=== PATIENT | female | born 1970 | race Caucasian/White ===

== ENCOUNTER 2019-08-30 14:13 | Outpatient (CLI) | payer OTHER, SELFPAY ==
--- NOTE | ~2019-08-30 | XR_ITS ---
EXAMINATION: XR chest 2V EXAM DATE: 08/30/2019 14:34 INDICATION: Cough. TECHNIQUE: Frontal and lateral projections of the chest obtained and reviewed. There is no prior rosaline dy for comparison. FINDINGS: The lungs are clear. There are no pleural effusions. The cardiomediastinal silhouette is within normal limits. There is no pneumothorax suspected. The bones and soft tissues are unremarkab le. IMPRESSION: Normal chest x-ray exam. Reviewed, dictated and finalized at location B. IMPRESSION: Normal chest x-ray exam.
== END 2019-08-30 14:14 | disposition home or self-care (01) ==
LOC: ANHIMG 14:18
PROVIDERS: PCP Internal Medicine; Visit Provider Clinical Nurse Specialist
DX: R05 Cough (principal)
CPT/HCPCS: 71046

== ENCOUNTER 2019-09-09 10:01 | Outpatient (CLI) | payer OTHER, SELFPAY ==
--- NOTE | ~2019-09-09 | CT_ITS ---
EXAMINATION:CT chest w con DATE: 09/09/2019 10:37 INDICATION: Cough. TECHNIQUE: Computed tomography (CT) of the chest was performed with 75 mL Omnipaque 350 intravenous c ontrast. Automated exposure control and iterative reconstruction technique were employed. The dose-le ngth product (DLP) was 132.31 mGy-cm. COMPARISON: CT abdomen and pelvis 12/15/2015 FINDINGS: There is mild atelectasis bilaterally. Calcified right lung nodules and calcified right hil ar lymph nodes are consistent with old granulomatous disease. No pleural effusion. The heart size is normal. No pericardial effusion. Calcifications in the spleen are consistent with old granulomatous d isease. There are bilateral breast implants. There is mild thoracic spondylosis. IMPRESSION: 1. No etiology for the patient's symptoms. Reviewed, dictated and finalized at location A.
== END 2019-09-09 10:02 | disposition home or self-care (01) ==
PROVIDERS: PCP Internal Medicine; Visit Provider Clinical Nurse Specialist
DX: R05 Cough (principal)
CPT/HCPCS: 71260; Q9967

== ENCOUNTER 2022-06-13 06:53 | Day surgery (SDC) | payer OTHER, SELFPAY ==
[2022-06-02 13:25] VITALS: BMI 24.6
[2022-06-06 13:20] VITALS: BMI 24.0
--- NOTE | 2022-06-13 07:21 | WPDANESEPPF ---
Anes - Initial Pre Proc Eval Procedure: Operation Date: 06/13/22 09:00 Proposed Procedures p Screening Colonoscopy - Freddy Morris MD Date/Time: 06/13/22 07:21 Surgeon: Freddy Morris MD Pre Op Diagnosis: Neoplasm Screening Patient Data Age: 52 Gender: F Height: 1.63 m Weight: 63.5 kg Allergies Allergy/AdvReac Type Severity Reaction Status Date / Time blue dye Allergy Intermediate Unknown Verified 06/13/22 07:46 yellow dye Allergy Intermediate Unknown Verified 06/13/22 07:46 aspirin Allergy Unknown Unknown Verified 06/13/22 07:46 cortisone Allergy Unknown Unknown Verified 06/13/22 07:46 adhesive tape Allergy Unknown Verified 06/13/22 07:46 mint Allergy Unknown Verified 06/13/22 07:46 wheat Allergy Unknown Verified 06/13/22 07:46 ANTI INFLAMATORY Allergy Mild Unknown Uncoded 06/13/22 07:46 Home Medications Medication Instructions Recorded Confirmed Type clonazepam 0.5 mg tablet 0.5 mg PO BID 08/29/19 06/13/22 History dextroamphetamine-amphetamine 10 10 mg PO DAILY 08/29/19 06/13/22 History mg tablet (Adderall) dextroamphetamine-amphetamine ER 30 mg PO DAILY 08/29/19 06/13/22 History 30 mg 24hr capsule,extend release (Adderall XR) fexofenadine 180 mg tablet 180 mg PO DAILY 08/29/19 06/13/22 History (Katie Allergy) fluoxetine 40 mg capsule (Prozac) 80 mg PO DAILY 08/29/19 06/13/22 History multivitamin 1 tablet PO DAILY 08/29/19 06/13/22 History vitamin E (dl, acetate) 180 mg 800 unit PO DAILY 08/30/19 06/13/22 History (400 unit) capsule famotidine 20 mg tablet (Pepcid) 20 mg PO DAILY 10/07/19 06/13/22 History aripiprazole 10 mg tablet (Abilify) 12 mg PO DAILY 11/25/21 06/13/22 History biotin 1,000 mcg chewable tablet 10,000 mcg PO DAILY 11/25/21 06/06/22 History estradiol 0.05 mg/24 hr semiweekly 1 patch transdermal WEEKLY 06/02/22 06/13/22 History transdermal patch ipratropium bromide 21 mcg (0.03 ml intranasal 06/02/22 06/02/22 History %) nasal spray Patient hx anesthesia problems: none Family hx anesthesia problems: none Results Review: All pre-operative results and documents have been reviewed as part of the pre-operative evaluation. [facility] Past Medical History Medical History Anxiety Chronic pain Chronic post-traumatic stress disorder (PTSD) Migraine headache Night sweats Tremor of both hands Urinary incontinence Surgical History Surgical History H/O shoulder surgery H/O sinus surgery History of elbow surgery right History of foot surgery History of hysterectomy History of oophorectomy Family History Family History Sibling Hypertension Grandparent Heart disease Diabetes mellitus Social History Social History Smoking status: Former smoker Tobacco type: e-cigarettes/vaping Alcohol intake: current Substance use: current Substance use type: marijuana Lack of Transportation: No Lack of Food: Never True Current Housing: I Have Housing Concerned About Future Housing: No Difficulty Paying Gas/Electric Bills: No Difficulty Paying for Meds: No Currently Unemployed: No Education: Master's Degree or Higher Difficulty w/ Childcare or Family Care: No Living arrangements: with family Spiritual care concerns: No Anes - Eval Final PreProcedure Day of Procedure 06/13/22 07:21 Patient weight: normal Heart: regular rate and rhythm Lungs: clear to auscultation and normal air movement Airway: Mallampati scale class II Neurological: alert and oriented Last oral intake: >/= 8 hours ASA classification: II Emergent: no Anesthetic plan: proceed Anesthesia type and monitoring: general GIVS Results Review: All pre-operative results and documents have been reviewed as part of the pre-operative evaluation. In
[2022-06-13 07:50] VITALS: BP 112/67; PULSE 59; RESP 14; TEMP 37.1; O2SAT 100
[2022-06-13 07:51] VITALS: BMI 24.6
[2022-06-13] MEDS: LACTATED RINGERS 1,000 ML 150 ML IV CONT (08:01)
--- NOTE | 2022-06-13 08:19 | PM.HPGS ---
History of Present Illness History of Present Illness Consent: Risks, benefits, and alternatives have been discussed and questions answered. Patient agrees to proceed with procedure. Chief complaint: Neoplasm Screening Narrative: Roxann Manzanares is a 52 year old female referred for colon cancer screening. Review of Systems Review of Systems: All systems reviewed & are unremarkable except as noted in HPI and below PMFSH Past Medical History Medical History Anxiety Chronic pain Chronic post-traumatic stress disorder (PTSD) Migraine headache Night sweats Tremor of both hands Urinary incontinence Surgical History Surgical History H/O shoulder surgery H/O sinus surgery History of elbow surgery right History of foot surgery History of hysterectomy History of oophorectomy Family History Family History Sibling Hypertension Grandparent Heart disease Diabetes mellitus Social History Social History Smoking status: Former smoker Tobacco type: e-cigarettes/vaping Alcohol intake: current Substance use: current Substance use type: marijuana Lack of Transportation: No Lack of Food: Never True Current Housing: I Have Housing Concerned About Future Housing: No Difficulty Paying Gas/Electric Bills: No Difficulty Paying for Meds: No Currently Unemployed: No Education: Master's Degree or Higher Difficulty w/ Childcare or Family Care: No Living arrangements: with family Spiritual care concerns: No Meds Home Medications and Allergies Home Medications Medication Instructions Recorded Confirmed Type clonazepam 0.5 mg tablet 0.5 mg PO BID 08/29/19 06/13/22 History dextroamphetamine-amphetamine 10 10 mg PO DAILY 08/29/19 06/13/22 History mg tablet (Adderall) dextroamphetamine-amphetamine ER 30 mg PO DAILY 08/29/19 06/13/22 History 30 mg 24hr capsule,extend release (Adderall XR) fexofenadine 180 mg tablet 180 mg PO DAILY 08/29/19 06/13/22 History (Katie Allergy) fluoxetine 40 mg capsule (Prozac) 80 mg PO DAILY 08/29/19 06/13/22 History multivitamin 1 tablet PO DAILY 08/29/19 06/13/22 History vitamin E (dl, acetate) 180 mg 800 unit PO DAILY 08/30/19 06/13/22 History (400 unit) capsule famotidine 20 mg tablet (Pepcid) 20 mg PO DAILY 10/07/19 06/13/22 History aripiprazole 10 mg tablet (Abilify) 12 mg PO DAILY 11/25/21 06/13/22 History biotin 1,000 mcg chewable tablet 10,000 mcg PO DAILY 11/25/21 06/06/22 History estradiol 0.05 mg/24 hr semiweekly 1 patch transdermal WEEKLY 06/02/22 06/13/22 History transdermal patch ipratropium bromide 21 mcg (0.03 ml intranasal 06/02/22 06/02/22 History %) nasal spray Allergies Allergy/AdvReac Type Severity Reaction Status Date / Time blue dye Allergy Intermediate Unknown Verified 06/13/22 07:46 yellow dye Allergy Intermediate Unknown Verified 06/13/22 07:46 aspirin Allergy Unknown Unknown Verified 06/13/22 07:46 cortisone Allergy Unknown Unknown Verified 06/13/22 07:46 adhesive tape Allergy Unknown Verified 06/13/22 07:46 mint Allergy Unknown Verified 06/13/22 07:46 wheat Allergy Unknown Verified 06/13/22 07:46 ANTI INFLAMATORY Allergy Mild Unknown Uncoded 06/13/22 07:46 Vital Signs Vital Signs - 24 hr 06/13/22 07:50 Temperature 37.1 C Pulse Rate 59 L Respiratory Rate 14 Blood Pressure 112/67 Pulse Oximetry 100 Oxygen Delivery Room Air Exam Const: General: alert Orientation/consciousness: patient oriented x3 Resp: Auscultation: clear to auscultation bilaterally Cardio: Rhythm: regular rhythm GI: GI Palp: Yes Soft to palpation and No Tenderness to palpation present (GI) Neuro: General: patient oriented x3 Assessment and Plan Assessment and plan (1) Screening for colon can
[2022-06-13 09:21] VITALS: BP 112/65; PULSE 65; RESP 16; O2SAT 100
[2022-06-13 09:31] VITALS: BP 105/67; PULSE 68; RESP 16; O2SAT 100
--- NOTE | 2022-06-13 09:31 | SUR.PHASEII ---
0925; PT AWAKE AND ALERT. DRINKING SODA AND SPEAKING WITH DR VERDE. DENIES PAIN OR NAUSEA.
[2022-06-13 09:41] VITALS: BP 116/66; PULSE 58; RESP 16; O2SAT 100
--- NOTE | 2022-06-13 12:08 | WPDANESPN ---
Anes - Prog Note Post-Op Date/Time: 06/13/22 12:08 Cardiovascular status: normal Respiratory status: normal Airway patency: baseline Mental status: baseline Post-Op hydration status: normal Vital Signs: Last Vital Signs Temp 37.1 C 06/13/22 07:50 Pulse 58 L 06/13/22 09:41 Resp 16 06/13/22 09:41 BP 116/66 06/13/22 09:41 Pulse Ox 100 06/13/22 09:41 O2 Del Method Room Air 06/13/22 09:41 Pain Score (VAS): 0 I/O: Intake & Output 06/12/22 06/13/22 06/13/22 23:59 07:59 15:59 Intake Total 400 Balance 400 Post-procedural complaints: none Patient Feedback: Patient satisfied with anesthetic care.
== END 2022-06-13 09:55 | disposition home or self-care (01) ==
PROVIDERS: PCP Internal Medicine; Visit Provider Internal Medicine Gastroenterology
PROC: 0DJD8ZZ Inspection of Lower Intestinal Tract, Via Natural or Artificial Opening Endoscopic (ICD-10-PCS; CPT 45378; principal; 2022-06-13 09:00)
DX: Z12.11 Encounter for screening for malignant neoplasm of colon (principal)
CPT/HCPCS: 45378

== ENCOUNTER 2022-06-22 12:31 | Outpatient (CLI) | payer OTHER, SELFPAY ==
--- NOTE | ~2022-06-22 | CT_ITS ---
EXAMINATION: CT diagnostic chest wo con DATE: 06/22/2022 13:43 INDICATION: Chronic cough and bronchitis TECHNIQUE: Computed tomography (CT) of the chest was performed without intravenous contrast. The dose -length product was 143.06 mGy-cm. Automated exposure control and iterative reconstruction technique were employed. COMPARISON: CT dated 09/09/2019 FINDINGS: Heart size normal. No thoracic lymphadenopathy. There is evidence for chronic granulomatous disease. There are bilateral breast implants. No significant pleural or pericardial effusion. There are calcified granulomas of the spleen. No endobronchial lesions. There is a fissural nodule on the l eft measuring 3 mm, coronal image 57, likely benign no focal airspace consolidation. No pneumothorax. No acute osseous abnormality.. IMPRESSION: 1. Small 3 mm fissural nodule on the left, likely benign. Consider follow-up low dose CT chest in 12 months. Reviewed, dictated and finalized at location A. IMPRESSION: 1. Small 3 mm fissural nodule on the left, likely benign. Consider follow-up lo w dose CT chest in 12 months.
--- NOTE | 2022-06-24 10:28 | WPDPFTINT ---
PFT Procedure Performed PFT Procedure Performed Spirometry with Pre/Post Bronchodilator Plethysmography (Lung Vol) Diffusing Cap (DLCO) Flow Vol Loop PFT Interpretation Lung volumes were measured with the body plethysmography method. The elevated lung volumes are most likely related to error in height measurement as the lung volume pattern is not consistent with either restrictive or obstructive airway disease. Spirometry also showed elevated expiratory flow rates most likely due to same error in height. The FEV1 to FVC ratio is normal at 76% predicted. Following administration of a bronchodilator there was no significant increase in expiratory flow rates. Lung diffusion capacity is also elevated for the same reason. Overall the flow volume loop is unremarkable. Impression: Probable normal study. Error in height may explain super normal values.
== END 2022-06-22 12:32 | disposition home or self-care (01) ==
PROVIDERS: PCP Internal Medicine; Visit Provider Internal Medicine Pulmonary Disease
DX: R05.3 Chronic cough (principal); R91.1 Solitary pulmonary nodule
CPT/HCPCS: 71250; 94060; 94726; 94729

== ENCOUNTER 2023-02-06 16:02 | Emergency (ER) | payer OTHER, SELFPAY ==
--- NOTE | 2023-02-06 16:06 | ED.URI ---
HPI - URI/Sore Throat General Chief Complaint: Upper Respiratory Infection Stated Complaint: Cough;Chills Time Seen by Provider: 02/06/23 16:06 Source: patient Mode of arrival: ambulatory Limitations: no limitations History of Present Illness HPI Narrative: Patient is a 52-year-old female who presents with worsening cough, fatigue, fever and chills over the weekend. Patient has chronic bronchitis and has been suffering with coughing since November. Patient denies any congestion, sore throat, ear pain. Patient has taken [id number] Mucinex, Benadryl and nasal spray to make it through today. Related Data Home Medications Medication Instructions Recorded Confirmed clonazepam 0.5 mg tablet 0.5 mg PO BID 08/29/19 02/06/23 dextroamphetamine-amphetamine 10 10 mg PO DAILY 08/29/19 02/06/23 mg tablet (Adderall) dextroamphetamine-amphetamine ER 30 mg PO DAILY 08/29/19 02/06/23 30 mg 24hr capsule,extend release (Adderall XR) fexofenadine 180 mg tablet 180 mg PO DAILY 08/29/19 02/06/23 (Katie Allergy) fluoxetine 40 mg capsule (Prozac) 80 mg PO DAILY 08/29/19 02/06/23 multivitamin 1 tablet PO DAILY 08/29/19 02/06/23 vitamin E (dl, acetate) 180 mg 800 unit PO DAILY 08/30/19 02/06/23 (400 unit) capsule famotidine 20 mg tablet (Pepcid) 20 mg PO DAILY 10/07/19 02/06/23 aripiprazole 10 mg tablet (Abilify) 12 mg PO DAILY 11/25/21 02/06/23 biotin 1,000 mcg chewable tablet 10,000 mcg PO DAILY 11/25/21 02/06/23 estradiol 0.05 mg/24 hr semiweekly 1 patch transdermal WEEKLY 06/02/22 02/06/23 transdermal patch ipratropium bromide 21 mcg (0.03 ml intranasal 06/02/22 08/02/22 %) nasal spray famotidine 20 mg tablet 20 mg PO DAILY 02/06/23 02/06/23 Allergies Allergy/AdvReac Type Severity Reaction Status Date / Time blue dye Allergy Intermediate Unknown Verified 02/06/23 16:10 yellow dye Allergy Intermediate Unknown Verified 02/06/23 16:10 aspirin Allergy Unknown Unknown Verified 02/06/23 16:10 cortisone Allergy Unknown Unknown Verified 02/06/23 16:10 adhesive tape Allergy Unknown Verified 02/06/23 16:10 mint Allergy Unknown Verified 02/06/23 16:10 wheat Allergy Unknown Verified 02/06/23 16:10 ANTI INFLAMATORY Allergy Mild Unknown Uncoded 02/06/23 16:10 Review of Systems Review of Systems: All systems reviewed & are unremarkable except as noted in HPI and below Constitutional: Constitutional: Denies body ache(s), Reports chills, Reports fatigue, Reports fever(s), Denies headache(s), Denies malaise and Denies weakness Eyes: Eyes: Denies blurry vision, Denies itchy eyes and Denies loss of vision ENT: Denies otalgia, Denies headache(s), Denies nasal congestion, Denies sinus pain and Denies sore throat Cardiovascular: Cardiovascular: Denies chest pain, Denies irregular heart rhythm and Denies dyspnea Respiratory: Respiratory: Reports cough and Denies dyspnea Gastrointestinal: Gastrointestinal: Denies abdominal pain, Denies diarrhea, Denies nausea and Denies vomiting Musculoskeletal: Musculoskeletal: Denies back pain, Denies myalgias and Denies arthralgias Integumentary/Breasts: Skin/Breast: Denies pruritus and Denies rash Neurologic: Denies headache(s), Denies loss of vision and Denies weakness Psychiatric: Psychiatric: Reports no additional psychiatric complaints Endocrine: Endocrine: Denies fatigue Allergic/Immunologic: Allergic/Immunologic: Denies itchy eyes PMFSH Past Medical History Medical History Anxiety Chronic pain Chronic post-traumatic stress disorder (PTSD) Migraine headache Night sweats Tremor of both hands Urinary incontinence Surgical History Surgical History H/O shoulder surgery H/O sinus surgery History of elbow surgery right History of foot surgery History of hysterectomy History of oophorectomy Family History Family History (Reviewed 02/06/23 @ 16:45 by Anne Mercado Co
[2023-02-06 16:12] VITALS: BP 140/83; PULSE 99; RESP 16; TEMP 37.4; O2SAT 100
[2023-02-06 16:17] VITALS: BP 140/83; PULSE 99; RESP 16; TEMP 37.4; O2SAT 100
== END 2023-02-06 16:42 | disposition home or self-care (01) ==
PROVIDERS: Emergency Provider Nurse Practitioner Family; PCP Internal Medicine
DX: J40 Bronchitis, not specified as acute or chronic (principal); F12.90 Cannabis use, unspecified, uncomplicated; F41.9 Anxiety disorder, unspecified
CPT/HCPCS: 99213; G0463

== ENCOUNTER 2024-08-13 14:26 | Outpatient (CLI) | payer OTHER, SELFPAY ==
--- NOTE | ~2024-08-13 | XR_ITS ---
AP view of the pelvis and AP and lateral views of the left hip Clinical history: Pain Findings: No acute fracture or dislocation is seen. Osseous alignment is anatomic. Bilateral hip and SI joint spaces are preserved. Soft tissues are unremarkable. Impression: No significant abnormality is seen. Reviewed, dictated and finalized at location . Impression: No significant abnormality is seen.
== END 2024-08-13 14:27 | disposition home or self-care (01) ==
LOC: GOSHIMG 14:26
PROVIDERS: PCP Clinical Nurse Specialist; Visit Provider Clinical Nurse Specialist
DX: M25.552 Pain in left hip (principal)
CPT/HCPCS: 73502

== ENCOUNTER 2024-11-18 16:00 | Emergency (ER) | payer OTHER, SELFPAY ==
[2024-11-18 16:07] VITALS: BP 126/83; PULSE 82; RESP 16; TEMP 36.7; O2SAT 100
[2024-11-18 16:15] LABS: EDUAAPPEAR Clear; EDUABILI Negative (Negative); EDUABLOOD Trace (Negative); EDUACOLOR1 Light/Pale; EDUAGLUCOSE Negative (Negative); EDUAKETONE Negative (Negative); EDUALEUKO Negative (Negative); EDUANITRATE Negative (Negative); EDUAPH 7.0; EDUAPROTEIN Negative (Negative); EDUASPGRAVITY 1.010; EDUAUROBILI 0.2
--- NOTE | 2024-11-18 16:40 | ED.FEMALEGU ---
HPI - Female Genitourinary General Chief complaint: Urogenital-Female Stated complaint: Uti Symptoms Time Seen by Provider: 11/18/24 16:20 Source: patient and RN notes reviewed Mode of arrival: ambulatory Limitations: no limitations History of Present Illness HPI Narrative: 54-year-old female presents Express Care complaining of urinary symptoms for for days. Patient reports having dysuria, increased frequency, hesitancy, nausea, suprapubic pain, low back pain, pyuria and fevers. Patient denies any body aches, chills, vomiting, diarrhea, or blood in her urine. Patient has taken no [id number] anti urinary medication without relief. Patient denies any significant past medical history. Related Data Home Medications ?Medication ?Instructions ?Recorded ?Confirmed ?Last Taken ?Type clonazepam 0.5 mg tablet 0.5 mg PO BID 08/29/19 11/18/24 06/12/22 History dextroamphetamine-amphetamine ER 30 mg PO DAILY 08/29/19 11/18/24 06/12/22 History 30 mg 24hr capsule,extend release (Adderall XR) fexofenadine 180 mg tablet 180 mg PO DAILY 08/29/19 08/13/24 Unknown History (Katie Allergy) fluoxetine 40 mg capsule (Prozac) 80 mg PO DAILY 08/29/19 11/18/24 06/11/22 History multivitamin 1 tablet PO DAILY 08/29/19 08/13/24 06/10/22 History vitamin E (dl, acetate) 180 mg 800 unit PO DAILY 08/30/19 08/13/24 06/10/22 History (400 unit) capsule famotidine 20 mg tablet (Pepcid) 20 mg PO DAILY 10/07/19 08/13/24 06/12/22 History aripiprazole 10 mg tablet (Abilify) 12 mg PO DAILY 11/25/21 11/18/24 06/12/22 History biotin 1,000 mcg chewable tablet 10,000 mcg PO DAILY 11/25/21 08/13/24 Unknown History estradiol 0.05 mg/24 hr semiweekly 1 patch transdermal WEEKLY 06/02/22 11/18/24 06/10/22 History transdermal patch ipratropium bromide 21 mcg (0.03 ml intranasal 06/02/22 08/13/24 Unknown History %) nasal spray cholecalciferol (vitamin D3) 125 125 mcg PO DAILY 08/13/24 08/13/24 Unknown History mcg (5,000 unit) capsule dextroamphetamine-amphetamine 10 10 mg PO DAILY PRN 08/13/24 08/13/24 Unknown History mg tablet (Adderall) dextroamphetamine-amphetamine 20 11/18/24 Unknown History mg tablet Allergies Allergy/AdvReac Type Severity Reaction Status Date / Time blue dye Allergy Intermediate Unknown Verified 11/18/24 16:17 aspirin Allergy Unknown Unknown Verified 11/18/24 16:17 cortisone Allergy Unknown Unknown Verified 11/18/24 16:17 adhesive tape Allergy Unknown Verified 11/18/24 16:17 mint Allergy Unknown Verified 11/18/24 16:17 wheat Allergy Unknown Verified 11/18/24 16:17 ANTI INFLAMATORY Allergy Mild Unknown Uncoded 08/13/24 13:32 Review of Systems Review of Systems: CONSTITUTIONAL: Denies chills, body aches, or sweats. Positive for fevers. EYES: Denies visual changes, redness, or discharge. ENT: Denies rhinorrhea, congestion, sore throat, or otalgia. CARDIOVASCULAR: Denies chest pain, palpitations, or edema. RESPIRATORY: Denies cough or dyspnea. GASTROINTESTINAL: Denies abdominal pain, vomiting, or diarrhea. Positive for nausea. GENITOURINARY: Positive for dysuria, pyuria, hesitancy, suprapubic pain, increased frequency. Negative for hematuria, vaginal bleeding or vaginal discharge.. SKIN: Denies rash or itching. MUSCULOSKELETAL: Denies back pain, joint pain, or myalgia. NEUROLOGIC: Denies headache, numbness, or weakness. PSYCHIATRIC: Denies anxiety or depression. All other systems reviewed are negative, except as documented in HPI. [facility] Past Medical History Medical History Chronic post-traumatic stress disorder (PTSD) Anxiety Night sweats Tremor of both hands Chronic pain Urinary incontinence Migraine headache Surgical History Surgical History History of foot surgery History of elbow surgery right H/O shoulder surgery H/O sinus surgery History of oophorectomy History of hysterectomy Family History Family History Sibling Hypertension Grandparent Heart disease Diabetes mellitus Social History Social History Social History: Caffeine-daily Smoking status: Former smoker Tobacco type: e-cigarettes/vaping Alcohol intake: never Substance use: current Substance use type: marijuana Other substance usage details: edibles Do You Feel Safe in your Home?: Yes Lack of Transportation: No Lack of Food: Never True Current Housing: I Have Housing Concerned About Future Housing: No Difficulty Paying Gas/Electric Bills: No Difficulty Paying for Meds: No Currently Unemployed: No Education: Master's Degree or Higher Difficulty w/ Childcare or Family Care: No Living arrangements: with family Occupation/Education: occupation 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 There is no relevant family history pertinent to the patient complaint. Exam Narrative: GENERAL: This is a well-nourished, well-developed adult, in no apparent distress. They are non ill-appearing, nontoxic appearing. HEAD: normocephalic, atraumatic. EYES: Sclera clear/white. Vision is grossly intact. Conjunctiva normal bilaterally. Extraocular movements intact. EARS: External ears normal,Hearing grossly intact. NOSE: External nose normal THROAT: Mucous membranes moist NECK: Normal range of motion CARDIOVASCULAR: Regular rate and rhythm. Normal S1-S2. No clicks, gallops, rubs, murmurs. RESPIRATORY: Respiratory rate normal, respiratory effort nonlabored, no respiratory distress. Lung sounds clear to auscultation throughout. Lung sounds equal bilaterally. No adventitious lung sounds. GASTROINTESTINAL: Abdomen soft, flat, mild suprapubic tenderness to palpation,, nondistended. Bowel sounds are active. No hepato-splenomegaly, or palpable masses. No guarding. No rebound tenderness. SKIN: warm, Dry, intact with no suspicious lesions or rash, good texture and turgor. NEURO: awake, alert, and oriented to person, place and time. There were no obvious focal neurologic abnormalities. EXTREMITIES: No joint tenderness, effusion, or edema noted. BACK: Nontender without deformity. No CVA tenderness. Course Course Emergency Course: Portions of this record may have been created with voice recognition software Level of Care: Express Care Visit Vital Signs Vital signs: Vital Signs Temperature 98.1 F 11/18/24 16:07 Pulse Rate 82 11/18/24 16:07 Respiratory Rate 16 11/18/24 16:07 Blood Pressure 126/83 11/18/24 16:07 Pulse Oximetry 100 11/18/24 16:07 Temperature 98.1 F 11/18/24 16:07 Pulse Rate 82 11/18/24 16:07 Respiratory Rate 16 11/18/24 16:07 Blood Pressure 126/83 11/18/24 16:07 Pulse Oximetry 100 11/18/24 16:07 MDM - Female Genitourinary MDM Narrative Medical decision making narrative: Urine dipstick shows 1+ blood. Urine culture pending. Symptoms consistent with urinary tract infection. Will treat with cephalexin. Discussed physical exam findings. Advised supportive measures and signs/symptoms to go to the ER. Pt is appropriate for outpt treatment and f/u. Differential Diagnosis Differential diagnosis: Likely urinary tract infection, cystitis and other (Pyelonephritis) Lab Data Attestation: I reviewed the patient's lab results. Labs: Lab Results 11/18/24 Range/Units 16:13 POC Urine Color Light/pale POC Urine Clarity Clear POC Urine pH 7.0 POC Ur Specif [place] 1.010 POC Urine Protein Negative (Negative) POC Ur Glucose (UA) Negative (Negative) POC Urine Ketones Negative (Negative) POC Urine Blood Trace (Negative) POC Urine Nitrite Negative (Negative) POC Urine Bilirubin Negative (Negative) POC Urine Urobilinogen 0.2 POC U Leukocyte Esteras Negative (Negative) Discharge Plan Discharge Clinical Impression: Urinary tract infection Qualifiers: Urinary tract infection type: site unspecified Hematuria presence: with hematuria Qualified Code(s): N39.0 - Urinary tract infection, site not specified Patient Disposition: Home Condition: Stable Instructions: Antibiotic Form, Urinary Tract Infection in Women (ED) Additional Instructions: Take the antibiotic as prescribed The urine will be sent of for a culture to identify what type of bacteria is causing your infection. If the culture shows that the antibiotic will not get rid of your infection, you will be notified and a new antibiotic will be called in for you. Increase water intake you will need to follow up with your PCP 3-5 days. Go to the ER for any worsening symptoms, abdominal pain, fevers, nausea, vomiting, or any other concerns Patient Language: Burmese Prescriptions: New cephalexin 500 mg capsule 500 mg PO BID 5 Days Qty: 10 0RF No Action dextroamphetamine-amphetamine 20 mg tablet dextroamphetamine-amphetamine [Adderall XR] 30 mg capsule,extended release 24hr 30 mg PO DAILY fexofenadine [Katie Allergy] 180 mg tablet 180 mg PO DAILY clonazepam 0.5 mg tablet 0.5 mg PO BID multivitamin Tablet 1 tablet PO DAILY fluoxetine [Prozac] 40 mg capsule 80 mg PO DAILY vitamin E (dl, acetate) 400 unit capsule 800 unit PO DAILY dextroamphetamine-amphetamine [Adderall] 10 mg tablet 10 mg PO DAILY PRN famotidine [Pepcid] 20 mg tablet 20 mg PO DAILY biotin 1,000 mcg tablet,chewable 10,000 mcg PO DAILY aripiprazole [Abilify] 10 mg tablet 12 mg PO DAILY Patient Comments: Dr.Robin Zepeda- Psychiatrist ipratropium bromide 21 mcg (0.03 %) spray,non-aerosol intranasal estradiol 0.05 mg/24 hr patch semiweekly 1 patch transdermal WEEKLY cholecalciferol (vitamin D3) 125 mcg (5,000 unit) capsule 125 mcg PO DAILY Follow-up/Referrals: Blu Odell DO [Primary Care Provider, Internal Medicine] Time of Disposition: 16:37
== END 2024-11-18 16:40 | disposition home or self-care (01) ==
PROVIDERS: PCP Internal Medicine
DX: N39.0 Urinary tract infection, site not specified (principal); Z87.891 Personal history of nicotine dependence; F12.90 Cannabis use, unspecified, uncomplicated; F41.9 Anxiety disorder, unspecified
CPT/HCPCS: 81003; 87086; 99213; G0463